=== PATIENT | male | born 1990 | race African-American/Black ===

== ENCOUNTER 2024-06-08 12:04 | Emergency (ER) | payer MEDICAID, OTHER ==
[~2024-06-08] VITALS: Ht 175.3 cm; Wt 125.0 kg
--- NOTE | 2024-06-08 12:12 | ED.PDOC ---
HPI Comments HPI: Poor Historian. 33-year-old male brought in by ambulance for evaluation of midsternal chest pain. Patient is homeless. Patient was walking for approximately 2 hours and developed midsternal chest pain nonradiating constant with the associated mild shortness of breath. He called 911. Per EMS, his vital signs were stable. Patient denies any tobacco abuse. The patient is smokes marijuana occasionally. Patient states that he left AMA from a rehab facility they called [facility]. He has been there for six days. Patient states that he left the facility because they did not permit him to take any of his medications such as hypertension and anxiety medications. Patient has not been taking any of his medicines for the last six days. past medical history: PTSD, anxiety, HTN past surgical history: denies medications: unknown allergies: denies social history: denies tobacco use, denies Etoh use, endorses drug use(marijuana) REVIEW OF SYSTEMS: CONSTITUTIONAL: Denies acute: fever, diaphoresis, chills, generalized weakness. HEAD: Denies acute: headache, photophobia Eyes: Denies acute: Double vision, vision loss, eye pain, eye discharge. EARS: Denies acute: tinnitus, hearing loss, ear discharge, ear pain, THROAT: Denies acute: sore throat, swelling, difficulty swallowing , pain with swallowing, change in voice. NECK: Denies acute: neck pain, neck swelling, stiff neck. HEART: Denies acute : palpitations, LUNGS: Denies acute: wheezing, cough, hemoptysis ABDOMEN: Denies acute: abdominal pain, Nausea, Vomiting, diarrhea, melena , hematemesis, hematochezia SKIN: Denies acute: rash, redness, lesions, itchiness. EXTREMITIES: Denies acute: calf pain, numbness, tingling, weakness, denies pain in extremity. Denies acute: Low back pain. Neuro: Denies acute: focal neurological deficit, motor or sensory focal neurological deficit, tremors, seizure like activity, confusion, dizziness, change in mental status, loss of bowel or bladder function, cauda equina like symptoms. : Denies acute: dysuria, hematuria, flank pain, increase in urinary frequency. PSYCH: Denies acute: hallucination, suicidal ideation, homicidal ideation. PHYSICAL EXAM: General: no acute distress, awake and alert. Head: normocephalic, atraumatic. Neck: supple, trachea is midline, no swelling. Throat: Normal phonation. Eyes:, no erythema, no purulent discharge, no proptosis, no icterus. Heart: regular rate, regular rhythm, no significant murmur appreciated. Lungs: no apparent respiratory distress, Able to speak in full sentences. No wheezing, no rhonchi, no crackles. No stridors Clear to auscultation bilaterally. Abdomen: non tender to palpation, non distended, soft, no guarding, no rebound, + bowel sounds. Neuro: Awake, Alert, oriented to name, self, situation, follows commands GCS=15. Speech is normal. Skin: no petechia, no purpura, no cyanosis, non-pale, not jaundice. Lower extremities: --no - Pitting edema no deformity, no focal swelling, no calf TTP. Makes eye contact. moves all four extremities. Face: no apparent facial droop. ED COURSE: Chief Complaint: Chest Pain Time Seen by MD: 12:11 Reviewed Notes: Nurses Notes, Allergies Allergies: Coded Allergies: NO KNOWN ALLERGIES (Unverified , 06/08/24) Information Source: Patient, Emergency Med Personnel Mode of Arrival: EMS Brought in by: EMS Was a procedure done? Was a procedure done?: No CP Differential Dx Differential Diagnosis: N/A Differential Diagnosis: Other (Ddx include but not limitied to gastritis, musculoskeletal pain, radiculopathy, atypical chest pain, dissection, aneurysm, ACS, unstable angina, hiatal hernia, GERD, anxiety, costochondritis, PE, pneumothroax, neoplasm, cardiac ischemia, drug abuse, anemia.) X-Ray, Labs, Meds, VS Vital Signs Date Time Temp Pulse Resp B/P (MAP) Pulse Ox O2 Delivery O2 Flow Rate FiO2 06/08/24 20:10 98.8 73 14 99/65 (76) 100 98.8 06/08/24 17:08 97.5 100 16 136/94 (108) 96 97.5 06/08/24 14:31 98.8 94 16 134/75 (94) 96 98.8 06/08/24 12:57 98 06/08/24 12:10 98.0 105 18 132/76 (94) 100 98.0 06/08/24 12:05 100 Lab Test 06/08/24 13:52 06/08/24 12:54 06/08/24 12:51 Range/Units Troponin I High Sensitivity < 3 L < 3 L </=54 ng/L Lactic Acid Level 1.3 0.4-2.0 mmol/L White Blood Count 5.3 4.4-10.8 10^3/uL Red Blood Count 4.65 4.5-5.90 10^6/uL Hemoglobin 14.1 13.5-17.5 g/dL Hematocrit 41.2 41.0-53.0 % Mean Corpuscular Volume 88.5 80.0-100.0 fL Mean Corpuscular Hemoglobin 30.4 28.0-32.0 pg Mean Corpuscular Hemoglobin Concent 34.3 32.0-36.0 g/dL Red Cell Distribution Width 14.1 11.8-14.3 % Platelet Count 215 140-450 10^3/uL Mean Platelet Volume 10.4 6.9-10.8 fL Neutrophils (%) (Auto) 65.6 37.0-80.0 % Lymphocytes (%) (Auto) 16.8 10.0-50.0 % Monocytes (%) (Auto) 14.7 H 0.0-12.0 % Eosinophils (%) (Auto) 2.6 0.0-7.0 % Basophils (%) (Auto) 0.3 0.0-2.0 % Neutrophils # (Auto) 3.5 1.6-8.6 10 ^3/uL Lymphocytes # (Auto) 0.9 0.4-5.4 10 ^3/uL Monocytes # (Auto) 0.8 0-1.3 10 ^3/uL Eosinophils # (Auto) 0.1 0-0.8 10 ^3/uL Basophils # (Auto) 0 0-0.2 10 ^3/uL Nucleated Red Blood Cells 0.2 % D-Dimer, Quantitative 0.64 H 0.0-0.49 mg/L FEU Sodium Level 140 136-145 mmol/L Potassium Level 4.9 3.5-5.1 mmol/L Chloride Level 105 98-107 mmol/L Carbon Dioxide Level 28 20-31 mmol/L Anion Gap 7 5-15 Blood Urea Nitrogen 15 9-23 mg/dL Creatinine 1.15 0.700-1.30 mg/dL Glomerular Filtration Rate Calc 85 >90 mL/min BUN/Creatinine Ratio 13.0 10.0-20.0 Serum Glucose 96 74-106 mg/dL Calcium Level 10.4 8.7-10.4 mg/dL Total Bilirubin 0.3 0.2-1.0 mg/dL Aspartate Amino Transferase (AST) 26 13-40 U/L Alanine Aminotransferase (ALT) 44 H 7-40 U/L Alkaline Phosphatase 149 H 46-116 U/L Creatine Kinase 262 H 46-171 U/L B-Type Natriuretic Peptide 2.98 0-100 pg/mL Total Protein 7.5 5.7-8.2 g/dL Albumin 4.8 3.2-4.8 g/dL [place] [id number] Ph: [phone] DIAGNOSTIC IMAGING Diagnostic Imaging Report : [id number] Signed PATIENT: LUCIUS MOSER ACCT: [id number] UNIT: [id number] : 1990 LOC: ER ROOM / BED: / AGE / SEX: 33 / M ADM STATUS: REG ER SERVICE 1212 ORDERING PHYSICIAN: EUGENIO CHACON DO PROCEDURE(s): CXRP - CHEST PORTABLE REASON: cp/sob ORDER NUMBER(s): [id number], ACCESSION NUMBER(s): [id number] CHEST RADIOGRAPH Indication: cp/sob Technique: Single frontal view of the chest was obtained COMPARISON: None FINDINGS: Lines and Tubes: None Lungs: Bibasilar subsegmental atelectasis Pleura: No effusion. No pneumothorax. Cardiomediastinal contours: Unremarkable Bones: Unremarkable IMPRESSION: Bibasilar subsegmental atelectasis. No effusion or pneumothorax. ATED BY: HERNAN WALTON MD DICTATED DATE/TIME: 06/08/24 1302 SIGNED BY: HERNAN WALTON MD SIGNED DATE/TIME: 06/08/24 1302 CC: Time of 1ST Reevaluation: 15:47 (Patient is medically clear for psychiatric and social service evaluation.Patient refused additional testing of labs/EKG/CT angiogram of the chest) Reevaluation 1ST: N/A Patient Education/Counseling: Diagnosis, Treatment Family Education/Counseling: No Family Present Comments Patient left against medical advice. Patient presented with the above HPI.---.---workup was initiated. patient was found with the above mentioned diagnosis. the following medications were ordered: please refer to order lists of meds and tests obtained by myself Dr. Chacon. Patient ED course and VS have been stabilized. Patient has been reassessed in the ED and remained in a stable condition. Patient has been observed in the ED adequate length of time to insure improvement/stability. Escalation of care considered: Consideration of escalation to observation or admission They refused social service consult or psychiatric evaluation and any further testing. Patient left against medical advice All the reports of any imaging studies that were ordered by myself were reviewed by myself. Departure 1 Departure Time of Disposition: 15:47 Impression: Primary Impression: Chest pain Additional Impressions: Left against medical advice Elevated d-dimer Disposition: LEFT AGAINST MEDICAL ADVICE Condition: Stable Discharged With: Self Critical Care Note Critical Care Time?: No Heart Score Heart Score: Heart Score Response (Comments) Value History Slightly Suspicious 0 EKG Normal 0 Age <45 0 Risk Factors 1 or 2 risk factors 1 Troponin Normal limit 0 Total 1 I personally scribed for EUGENIO CHACON DO ([email or web address]) on 06/08/24 at 12:12. Electronically submitted by Jeffrey Cote ([employer]). I personally scribed for EUGENIO CHACON DO ([email or web address]) on 06/08/24 at 12:48. Electronically submitted by Jeffrey Cote ([employer]). I personally scribed for EUGENIO CHACON DO ([email or web address]) on 06/08/24 at 13:39. Electronically submitted by Jeffrey Cote ([employer]). EUGENIO CHACON DO Jun 08, 2024 12:12
--- NOTE | 2024-06-08 13:05 | DVH ---
CHEST RADIOGRAPH Indication: cp/sob Technique: Single frontal view of the chest was obtained COMPARISON: None FINDINGS: Lines and Tubes: None Lungs: Bibasilar subsegmental atelectasis Pleura: No effusion. No pneumothorax. Cardiomediastinal contours: Unremarkable Bones: Unremarkable IMPRESSION: Bibasilar subsegmental atelectasis. No effusion or pneumothorax.
[2024-06-08 13:28] LABS: Basophils # (auto) 0 10 ^3/uL (0-0.2); Basophils % (auto) 0.3 % (0.0-2.0); Eosinophils # (auto) 0.1 10 ^3/uL (0-0.8); Eosinophils % (auto) 2.6 % (0.0-7.0); Hematocrit 41.2 % (41.0-53.0); Hemoglobin 14.1 g/dL (13.5-17.5); Lymphocytes # (auto) 0.9 10 ^3/uL (0.4-5.4); Lymphocytes % (auto) 16.8 % (10.0-50.0); Mean Corpuscular Hemoglobin 30.4 pg (28.0-32.0); Mean Corpuscular Hgb Conc. 34.3 g/dL (32.0-36.0); Mean Corpuscular Volume 88.5 fL (80.0-100.0); Monocytes # (auto) 0.8 10 ^3/uL (0-1.3); Monocytes % (auto) 14.7 % (0.0-12.0); Neutrophils # (auto) 3.5 10 ^3/uL (1.6-8.6); Neutrophils % (auto) 65.6 % (37.0-80.0); Nucleated Red Blood Cells % 0.2 %; Platelet Count (auto) 215 10^3/uL (140-450); Red Blood Cells 4.65 10^6/uL (4.5-5.90); Red Cell Distribution Width 14.1 % (11.8-14.3); White Blood Cell 5.3 10^3/uL (4.4-10.8)
[2024-06-08 13:37] LABS: Albumin 4.8 g/dL (3.2-4.8); Anion Gap 7 (5-15); Aspartate Aminotransferase 26 U/L (13-40); Blood Urea Nitrogen 15 mg/dL (9-23); Calcium 10.4 mg/dL (8.7-10.4); Carbon Dioxide 28 mmol/L (20-31); Chloride 105 mmol/L (98-107); Glucose 96 mg/dL (74-106); Potassium 4.9 mmol/L (3.5-5.1); Sodium 140 mmol/L (136-145); Total Protein 7.5 g/dL (5.7-8.2)
[2024-06-08 13:38] LABS: Alanine Aminotransferase 44 U/L (7-40); Alkaline Phosphatase 149 U/L (46-116); Bilirubin, Total 0.3 mg/dL (0.2-1.0); Creatine Kinase IFCC 262 U/L (46-171)
[2024-06-08] MEDS: SODIUM CHLORIDE 0.9% 1,000 ML IV ONE (14:00)
--- NOTE | 2024-06-08 18:35 | DVHINCON2 ---
Date of Service if different f: Jun 08, 2024 Consultation (FROM[facility]) Labs Laboratory Tests Test 06/08/24 12:51 06/08/24 12:54 06/08/24 13:52 White Blood Count 5.3 10^3/uL (4.4-10.8) Red Blood Count 4.65 10^6/uL (4.5-5.90) Hemoglobin 14.1 g/dL (13.5-17.5) Hematocrit 41.2 % (41.0-53.0) Mean Corpuscular Volume 88.5 fL (80.0-100.0) Mean Corpuscular Hemoglobin 30.4 pg (28.0-32.0) Mean Corpuscular Hemoglobin Concent 34.3 g/dL (32.0-36.0) Red Cell Distribution Width 14.1 % (11.8-14.3) Platelet Count 215 10^3/uL (140-450) Mean Platelet Volume 10.4 fL (6.9-10.8) Neutrophils (%) (Auto) 65.6 % (37.0-80.0) Lymphocytes (%) (Auto) 16.8 % (10.0-50.0) Monocytes (%) (Auto) 14.7 % (0.0-12.0) Eosinophils (%) (Auto) 2.6 % (0.0-7.0) Basophils (%) (Auto) 0.3 % (0.0-2.0) Neutrophils # (Auto) 3.5 10 ^3/uL (1.6-8.6) Lymphocytes # (Auto) 0.9 10 ^3/uL (0.4-5.4) Monocytes # (Auto) 0.8 10 ^3/uL (0-1.3) Eosinophils # (Auto) 0.1 10 ^3/uL (0-0.8) Basophils # (Auto) 0 10 ^3/uL (0-0.2) Nucleated Red Blood Cells 0.2 % D-Dimer, Quantitative 0.64 mg/L FEU (0.0-0.49) Sodium Level 140 mmol/L (136-145) Potassium Level 4.9 mmol/L (3.5-5.1) Chloride Level 105 mmol/L (98-107) Carbon Dioxide Level 28 mmol/L (20-31) Anion Gap 7 (5-15) Blood Urea Nitrogen 15 mg/dL (9-23) Creatinine 1.15 mg/dL (0.700-1.30) Glomerular Filtration Rate Calc 85 mL/min (>90) BUN/Creatinine Ratio 13.0 (10.0-20.0) Serum Glucose 96 mg/dL (74-106) Calcium Level 10.4 mg/dL (8.7-10.4) Total Bilirubin 0.3 mg/dL (0.2-1.0) Aspartate Amino Transf (AST/SGOT) 26 U/L (13-40) Alanine Aminotransferase (ALT/SGPT) 44 U/L (7-40) Alkaline Phosphatase 149 U/L (46-116) Creatine Kinase 262 U/L (46-171) B-Type Natriuretic Peptide 2.98 pg/mL (0-100) Total Protein 7.5 g/dL (5.7-8.2) Albumin 4.8 g/dL (3.2-4.8) Lactic Acid Level 1.3 mmol/L (0.4-2.0) Troponin I High Sensitivity < 3 ng/L (</=54) Appetite: Fair Appearance: Stated age, Disheveled Psychomotor activity: WNL Behavioral: Cooperative Eye contact: Appropriate Speech: WNL Affect: Guarded Mood: Depressed Thought processes: Linear/Goal-directed Thought content: WNL Suicidal ideations: Present (passive) Homicidal ideations: Absent Orientation: Person, Place, Time Memory intact: Recent Intellect: Average Abstractability: WNL Concentration: Adequate Attention: Adequate Judgement: Limited Insight: Limited Vitals Vital Signs Date Time Temp Pulse Resp B/P (MAP) Pulse Ox O2 Delivery O2 Flow Rate FiO2 06/08/24 17:08 97.5 100 16 136/94 (108) 96 97.5 Medication adjusted: No Diagnosis: unspecified mood disorder, PTSD. r/o substance induced psychosis Plan : Patient is reporting suicidal ideation. He is willing to go voluntarily to inpatient psychiatric facility. Recommend transfer vol inpatient psychiatric facility. If there are no available beds, please contact psychiatry for re-consult. Patient may continue seroquel 300mg po qhs, wellbutrin xl 150mg po qam. Follow up with outpatient mental for medication management History of Present Illness Reason for Consult : suicidal ideation HPI : This is a 33-year-old male presents to ED via ambulance reporting chest pain and suicidal ideation On evaluation via telepsychiatry, he reports being homeless from [place]. He reports someone told him to come here for a visit and he would be provided with housing. When he arrived here, he could not get in contact with the person and he is now stranded for the past 2 weeks. He was at [facility]hab but he left today because he was not allowed to use his psychiatric medications. He is now feeling hopeless, depressed, and suicidal ideation with plan to walk into traffic. He reports if he does not receive help, he will harm himself. He denies homicidal ideation. He denies auditory hallucinations. He reports paranoid thoughts of people following him around. He trouble with sleep someti mes. He reports appetite is intact. Past Psychiatric History : He reports prior psychiatric admission and holds. he reports suicide attempt 6 months ago where he attempted to strangle himself. He reports receiving prescriptions from previous rehab in [place] of Wellbutrin xl 150mg, Remeron, Buspar 15mg, vistaril, seroquel 300mg. This were left at rehab today. He reports prior diagnoses of PTSD, bipolar and schizophrenia. Past Medical History : He reports hx of HTN Social History : He is homeless. He denies receiving SSI and trying to appeal his case. He is single, unemployed. Sister may have mental health history. he reports use of marijuana almost daily. He uses alcohol occasionally. he denies other substances. No toxicology available currently. ARETHA MASTERS DNP Jun 08, 2024 18:35
[2024-06-09 08:05] VITALS: BP 136/77; PULSE 86; RESP 16; TEMP 97.4; O2SAT 97
--- NOTE | 2024-06-09 11:02 | ECG ---
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
--- NOTE | 2024-06-13 07:08 | ECG ---
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
== END 2024-06-09 07:30 | disposition left against medical advice (07) ==
LOC: ER 12:04 → EDBD 12:04 → ER 06-09 07:30
DX: R07.89 Other chest pain (principal); R79.89 Other specified abnormal findings of blood chemistry; I10 Essential (primary) hypertension; Z53.29 Procedure and treatment not carried out because of patient's decision for other reasons
CPT/HCPCS: 36415; 71045; 80053; 82550; 83605; 83880; 84484; 85025; 85379; 93005